=== PATIENT | male | born 1960 | race Caucasian/White ===

== ENCOUNTER 2017-01-02 19:55 | Emergency (ER) | payer OTHER ==
[~2017-01-02] VITALS: Ht 182.9 cm; Wt 106.6 kg
[~2017-01-02 19:55] MED LIST: BACLOFEN20 MG PO; COUMADIN PO; IBUPROFEN PO; LODINE PO; NEURONTIN PO; OXYCODON HCL-AP1 TA2 PO; VICODIN 5/1 TAB 5/50 PO; VICODIN 5/500 T1 TAB PO
== END 2017-01-02 21:30 | disposition home or self-care (01) ==
LOC: CED 19:55
DX: S06.0X1A Concussion with loss of consciousness of 30 minutes or less, initial encounter (principal); F17.200 Nicotine dependence, unspecified, uncomplicated; W01.0XXA Fall on same level from slipping, tripping and stumbling without subsequent striking against object, initial encounter; Y92.009 Unspecified place in unspecified non-institutional (private) residence as the place of occurrence of the external cause; G40.909 Epilepsy, unspecified, not intractable, without status epilepticus
CPT/HCPCS: 99284